=== PATIENT | female | born 1955 | race Caucasian/White ===

== ENCOUNTER 2016-04-01 14:56 | Day surgery (SDC) | payer MEDICARE, MEDICAID ==
[~2016-04-01 14:56] MED LIST: ATRV10T PO
[2016-04-01] MEDS ORDERED: Bupivacaine-MPF 0.25% 30 mL Inj ONE (14:57)
[2016-04-01] MEDS ORDERED: Iohexol 240 mg/mL 10 mL Inj ONE (14:57)
[2016-04-01 15:40] VITALS: BP 118/72; PULSE 86; RESP 19; O2SAT 95
[2016-04-01] MEDS ORDERED: HYDR-3090 PO (15:50)
[2016-04-01] MEDS ORDERED: IBUP-1827 PO (15:50)
--- NOTE | 2016-04-01 16:58 | PCM.PROC ---
Procedure Note Date of Service: Apr 01, 2016 Pre Procedure Diagnosis: PROCEDURE: Diagnostic medial branch block of the Lumbar facet joints RIGHT L4-L5 , L5-S1. 1st injection. 0.25% bupivacaine PRE-PROCEDURE DIAGNOSIS: Spondylosis without myelopathy or radiculopathy, Lumbosacral Region. 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 PERFORMED BY: Jay Stock MD DESCRIPTION OF PROCEDURE: Patient was met in the holding area. Consent was signed, site was confirmed and all questions were answered. Patient was taken to the procedure suite and placed prone on the procedure table.The appropriate time out in the OR was performed confirming the patient's name, date of , planned procedure, and presence of the appropriate instrumentation. At each level, the vertebral endplates were used to optimize fluoroscopic position. Local anesthesia was attained with 1% lidocaine. The image intensifier was then rotated ipsilaterally to optimize the "[place] dog" position. A 25-gauge Quincke spinal needle was advanced towards the junction of the SAP and transverse process at each level. Proper positioning was confirmed in both the AP and lateral views. 0.5 cc of radiopaque contrast was injected to confirm proper position followed by an injection underlying fluoroscopy to minimize the chance of inadvertent vascular uptake. For the L5-C2abumw joint the final position was the junction of the sacral ala and the S1 superior articulating process After proper positioning was confirmed, 0.5 cc of local anesthetic was injected at each level. ANESTHESIA: Local. EBL: None. No Blood Products Used COMPLICATIONS: None SPECIMENS: None POST-PROCEDURE DISPOSITION: Patient tolerated the procedure well and was returned to the holding area in stable condition. They were discharged home when all discharge criteria were met. DISCHARGE MEDICATIONS: None FOLLOW UP: Pain diary, Return to discuss Jay Stock MD * Pain Management * Anesthesiology .ED: Y: Patient given care and follow up instructions Jay Stock MD Apr 01, 2016 16:58
== END 2016-04-01 23:59 | disposition home or self-care (01) ==
LOC: END 14:56
PROVIDERS: ATTEND Anesthesiology Pain Medicine
DX: M47.897 Other spondylosis, lumbosacral region (principal); M54.5 Low back pain; G89.29 Other chronic pain